=== PATIENT | female | born 1940 | race Caucasian/White ===

== ENCOUNTER 2016-05-27 08:29 | Inpatient (IN) | payer OTHER ==
[2016-05-12 09:38] VITALS: BMI 39.0
--- NOTE | 2016-05-12 10:19 | PAT Medication Instructions ---
Service Date May 12, 2016. Current Home Medication List Albuterol (Ventolin Hfa), 2 PUFFS INH Q4 PRN for SOB/Wheezing Allopurinol (Zyloprim), 100 MG PO DAILY Alprazolam (Xanax *), 0.25 MG PO BID PRN Amlodipine (Norvasc), 5 MG PO DAILY Calcium Carbonate-Vitamin D (Calcium), 1 TAB PO TID Celecoxib (Celebrex), 200 MG PO BID Fish Oil ([place]-3), 1 CAP PO QID Fluoxetine (Prozac), 20 MG PO DAILY Furosemide (Lasix), 20 MG PO DAILY Gabapentin (Neurontin), 800 MG PO BID Hydrocodone/Acetaminophen 5MG/325MG ([place] 5MG/325MG), 1 TABLET PO Q4 PRN for Pain Lisinopril (Zestril), 40 MG PO DAILY Metoprolol Tartrate (Lopressor) (Lopressor), 50 MG PO BID Multivitamin (Multivitamin), 1 TAB PO DAILY Omeprazole (Prilosec), 20 MG PO DAILY Potassium Ext Rel (Klor-Con), 10 MEQ PO DAILY Rosuvastatin Calcium (Crestor), 10 MG PO HS [Chlorhexidine Rinse], 1 DOSE PO UD PRN for WITH DENTAL PROCEDURES Medication Instructions For Your Scheduled Surgery - Hold the following medications 2 weeks prior to surgery: Fish Oil ([place]-3), 1 CAP PO QID - Hold the following medications the morning of surgery: Multivitamin (Multivitamin), 1 TAB PO DAILY Potassium Ext Rel (Klor-Con), 10 MEQ PO DAILY Lisinopril (Zestril), 40 MG PO DAILY Furosemide (Lasix), 20 MG PO DAILY Celecoxib (Celebrex), 200 MG PO BID (otherwise okay to continue per surgeon) Calcium Carbonate-Vitamin D (Calcium), 1 TAB PO TID - Take the following medications the morning of surgery with a sip of water: Gabapentin (Neurontin), 800 MG PO BID Metoprolol Tartrate (Lopressor) (Lopressor), 50 MG PO BID Hydrocodone/Acetaminophen 5MG/325MG ([place] 5MG/325MG), 1 TABLET PO Q4 PRN for Pain (may take if needed up to 4 hours prior to surgery) Omeprazole (Prilosec), 20 MG PO DAILY Fluoxetine (Prozac), 20 MG PO DAILY Amlodipine (Norvasc), 5 MG PO DAILY Albuterol (Ventolin Hfa), 2 PUFFS INH Q4 PRN for SOB/Wheezing (use if needed; BRING TO HOSPITAL) Alprazolam (Xanax *), 0.25 MG PO BID PRN Allopurinol (Zyloprim), 100 MG PO DAILY - Take the following medications as scheduled the night before surgery: Rosuvastatin Calcium (Crestor), 10 MG PO HS Gabapentin (Neurontin), 800 MG PO BID Metoprolol Tartrate (Lopressor) (Lopressor), 50 MG PO BID Hydrocodone/Acetaminophen 5MG/325MG ([place] 5MG/325MG), 1 TABLET PO Q4 PRN for Pain Celecoxib (Celebrex), 200 MG PO BID Calcium Carbonate-Vitamin D (Calcium), 1 TAB PO TID Albuterol (Ventolin Hfa), 2 PUFFS INH Q4 PRN for SOB/Wheezing Alprazolam (Xanax *), 0.25 MG PO BID PRN If you have any questions please call us at [phone] or [phone] or [phone]
--- NOTE | 2016-05-12 11:02 | DIAGNOSTIC IMAGING REPORT ---
CHEST PREADMISSION(PA/LAT) HISTORY: Preop. COMPARISON: Chest 10/31/2008. FINDINGS: Cardiac silhouette is mildly enlarged. There is mild diffuse interstitial thickening. No focal lung consolidations to suggest pneumonia. No pleural effusions. No pneumothorax. IMPRESSION: 1. Mild cardiomegaly. 2. Mild interstitial thickening. This could chronic or due to mild congestive change. Electronically signed by: Nolan Rao M.D. 05/12/2016 11:01 AM Dictated Date/Time: 05/12/2016 10:59 AM
[2016-05-12 11:07] LABS: BASO % 0.2 %; BASO ABS # 0.02 K/uL (0-0.2); COMPLETE YES; EOS % 1.4 %; HEMATOCRIT 43.5 % (37-47); IG% 0.3 %; LYMPH % 18.7 %; LYMPH ABS # 1.88 K/uL (1.2-3.4); MEAN CELL VOLUME 92.6 fL (80-100); MEAN CORPUSCULAR HGB CONC 32.4 g/dl (32-36); MEAN PLATELET VOLUME 11.6 fL (7.4-10.4); MONO % 10.4 %; PLATELET COUNT 190 K/uL (130-400); URINE APPEARANCE CLEAR (CLEAR); URINE BILIRUBIN NEG (NEG); URINE COLOR DK YELLOW; URINE NITRITE NEG (NEG); URINE SPECIFIC GRAVITY 1.028 (1.000-1.030); UROBILINOGEN NEG (NEG); WHITE BLOOD COUNT 10.05 K/uL (4.8-10.8)
[2016-05-12 11:09] LABS: MANUAL MICROSCOPIC REQUIRED? YES; REVIEW REQ? NO
[2016-05-12 11:16] LABS: URINE BACTERIA 1+ (NEG); URINE RBC 0-4 /hpf (0-4)
[2016-05-12 11:50] LABS: BUN/CREATININE RATIO 40.5 (10-20); CALCIUM 9.3 mg/dl (8.5-10.1); CREATININE 1.1 mg/dl (0.60-1.20); POTASSIUM 4.8 mmol/L (3.5-5.1)
--- NOTE | 2016-05-26 10:12 | HISTORY & PHYSICAL EXAMINATION ---
DATE OF ADMISSION: 05/27/2016 HISTORY OF PRESENT ILLNESS: The patient presents to our office with a complaint of left leg pain. It is limiting in nature. She has failed nonoperative treatment for this. Denies bowel or bladder changes. PAST MEDICAL HISTORY: The patient's medical history is significant for hypertension, hypercholesterolemia, anxiety, hypothyroidism, arthritis, jaundice, GERD, obesity. PAST SURGICAL HISTORY: Significant for hip replacement on the right, colostomy, arthrocentesis of the right shoulder, hysterectomy, left hand surgery, and appendectomy. ALLERGIES: INCLUDE LATEX, OFLOXACIN, NORTRIPTYLINE, CYMBALTA, CONTROL PILLS AND KIWI FRUIT. MEDICATIONS: To include: 1. Amlodipine besylate 5 mg a day. 2. Celebrex 200 mg twice a day. 3. Chlorhexidine rinse. 4. Crestor 10 mg a day. 5. Fluoxetine 20 mg a day. 6. Gabapentin 800 mg twice a day. 7. Lisinopril 40 mg a day. 8. Metoprolol 50 mg twice a day. 9. Prilosec 20 mg daily. 10. Ventolin as needed. 11. Xanax 0.25 mg 2 a day p.r.n. 12. Furosemide 20 mg a day. 13. Potassium 10 mEq daily. 14. Multivitamin. 15. Fish oil. 16. Calcium. 17. Glucosamine. SOCIAL HISTORY: [place] alcohol and tobacco use. REVIEW OF SYSTEMS: Significant for back and bilateral leg pain. PHYSICAL EXAMINATION: HEENT: Speech appropriate. CARDIOPULMONARY: No gross abnormalities. ABDOMEN: Soft, nontender. GENITOURINARY: Deferred. NEUROLOGIC: Cranial nerves II-XII grossly intact. MUSCULOSKELETAL: Shows a well-healed lumbar incision. Strength is intact bilateral lower extremities. Neurovascularly intact. ASSESSMENT: Anterolisthesis L2-3 and L3-4, neural foraminal stenosis. PLAN: At this point in time, she has tried and failed conservative therapy and may consider surgical intervention. Surgery would require revision decompression L2-3, L3-4. Risks, benefits, pros, cons, and alternatives were outlined in detail. The patient would like to proceed with the above-mentioned surgical plan.
[2016-05-27] VITALS (9 sets, daily range): BP systolic 117–155; BP diastolic 61–80; PULSE 50–65; TEMP 36.4–36.7; O2SAT 95–99; Ht 172.7 cm; Wt 116.3 kg
[~2016-05-27] VITALS: Ht 172.7 cm; Wt 116.3 kg
--- NOTE | 2016-05-27 07:25 | History & Physical Bridge Note ---
H&P Re-Evaluation Bridge Note: I have examined the patient, reviewed the History & Physical and in the interval since the performance of the History & Physical I have noted the following changes of clinical significance: No changes noted
[~2016-05-27 08:29] MED LIST: ALLO100T PO; AMLO-110 PO; CALC-51 PO; CEFAZOLIN 2000 MG/60 ML D5W IV SCH; CHLORHEXIDINE PO; CLB100 PO; CRS/10 PO; FLUO20CA35 PO; FURO-85 PO; GABA800T PO; HYDR-5688 PO; LACTATED RINGER'S 1000ML 1,000 ML IV SCH; LISI-725 PO; METO50TA16 PO; MULT-506 PO; OMEG10007 PO; POTA20TA16 PO; PRLSR20 PO; PRVHFAIN INH; XNX25 PO
[2016-05-27] MEDS ORDERED: FENTANYL CITRATE INJ 50 MCG/1 ML 2 ML VIAL ONE ×2 (09:20→10:21)
[2016-05-27] MEDS ORDERED: MIDAZOLAM HCL 1 MG/ML 2ML VIAL ONE (09:20)
[2016-05-27] MEDS ORDERED: BUPIVACAINE/EPINEPHRINE 0.5% MPF 1:200,000 30 ML VIAL ONE ×2 (09:33→09:49)
[2016-05-27] MEDS ORDERED: SODIUM CHLORIDE 0.9% PF 50 ML VIAL ONE (09:33)
[2016-05-27] MEDS ORDERED: BACITRACIN 50000 UNIT VIAL ONE (09:33)
[2016-05-27] MEDS ORDERED: ATROPINE SULFATE 0.1 MG/ML 5ML SYR IV PRN (09:45)
[2016-05-27] MEDS ORDERED: HYDROmorphone INJ 2 MG/ML SYR/VIAL IV PRN (09:45)
[2016-05-27] MEDS ORDERED: ONDANSETRON INJ 2 MG/ML 2 ML VIAL IV PRN ×2 (09:45→11:30)
[2016-05-27] MEDS ORDERED: PHENYLEPHRINE 100MCG/ML 5ML SYR IV PRN (09:45)
[2016-05-27] MEDS ORDERED: EpHEDrine SULFATE INJ 50 MG/ML AMP IV PRN (09:45)
[2016-05-27] MEDS ORDERED: HYDROmorphone INJ 2 MG/ML SYR/VIAL ONE ×2 (10:21→11:43)
--- NOTE | 2016-05-27 11:01 | Progress Note ---
Progress Note Date of Service May 27, 2016. Progress Note The patient was a difficult intubation and after a few attempts with a MAC 3 blade we used the glidescope. A white object was noted in the oropharynx which appeared to be a dental crown. The patient was intubated and the crown was removed uneventfully with a pair of forceps. Upon examination of the teeth it appeared that the crown fell off of the right upper molar. There was never any pressure placed on her molars during the intubation process.
[2016-05-27] MEDS ORDERED: FLOSEAL HEMOSTATIC MATRIX 10ML TOP ONE (11:23)
[2016-05-27] MEDS ORDERED: SODIUM CHLORIDE 0.9% 1000ML 1,000 ML IV SCH (11:27)
--- NOTE | 2016-05-27 11:27 | [facility] Post Operative Brief Note ---
Immediate Operative Summary Operative Date May 27, 2016. Pre-Operative Diagnosis Anterolisthesis L2-L3, Neural Foraminal Stenosis L3-L4 Post-Operative Diagnosis Same as preoperative Procedure(s) Performed L3-L4 Revision, L2-L3 Lumbar Decompression, Pedicle Screw Fixation Fusion, Placement of an Interbody Device L3-L4 , Bone Graft Application Allograft Jordyn, Bone Morphogenetic Protein Application. Surgeon Marketing Operations Assistant Surgeon(s) Marlen Angeles PA-C Estimated Blood Loss 325 mL Findings stenosis Specimens None per surgeon.
[2016-05-27] MEDS ORDERED: FAMOTIDINE 20 MG TAB PO PRN (11:30)
[2016-05-27] MEDS ORDERED: LORAZEPAM 0.5 MG TAB PO PRN (11:30)
[2016-05-27] MEDS ORDERED: ALBUTEROL HFA 8 GM INHALER INH PRN (11:30)
[2016-05-27] MEDS ORDERED: ACETAMINOPHEN IV 100 ML IV PRN (11:30)
[2016-05-27] MEDS ORDERED: NALOXONE HCL 0.4 MG/1 ML VIAL/CARP IV PRN ×2 (11:30)
[2016-05-27] MEDS ORDERED: ACETAMINOPHEN 500 MG TAB PO PRN (11:30)
[2016-05-27] MEDS ORDERED: DO NOT ADMINISTER FLU VACCINE PRN ×3 (11:30)
[2016-05-27] MEDS ORDERED: MAGNESIUM HYDROXIDE SUSP 30 ML UDC PO PRN (11:30)
[2016-05-27] MEDS ORDERED: BISACODYL 10 MG SUPP PR PRN (11:30)
[2016-05-27] MEDS ORDERED: PROMETHAZINE HCL INJ 12.5 MG in SODIUM CHLORIDE 0.9% 50ML 50 ML IV PRN (11:30)
[2016-05-27] MEDS ORDERED: SOD PHOSPHATE/SOD BIPHOSPHATE ENEMA 132 ML BTL PR PRN (11:30)
[2016-05-27] MEDS ORDERED: ALUMINUM/MAGNESIUM SUSP 30 ML UDC PO PRN (11:30)
[2016-05-27] MEDS ORDERED: DO NOT ADMINISTER PNEUMOCOCCAL VACCINE PRN ×2 (11:30)
[2016-05-27] MEDS ORDERED: METOCLOPRAMIDE HCL INJ 5 MG/ML 2 ML VIAL IV PRN (11:30)
[2016-05-27] MEDS ORDERED: hydrOXYzine HCL 25 MG TAB PO PRN (11:30)
[2016-05-27] MEDS ORDERED: LORAZEPAM INJ 0.5 MG in SYRINGE 0 ML IV PRN (11:30)
[2016-05-27] MEDS ORDERED: ONDANSETRON INJ 2 MG/ML 2 ML VIAL ONE ×2 (11:33→11:44)
[2016-05-27] MEDS ORDERED: LIDOCAINE HCL 2% 2 ML VIAL (20MG/ML) ONE (11:33)
[2016-05-27] MEDS ORDERED: DEXAMETHASONE SOD INJ 4 MG/ML VIAL ONE (11:33)
[2016-05-27] MEDS ORDERED: ROCURONIUM BROMIDE 10 MG/ML 5 ML VIAL ONE (11:33)
[2016-05-27] MEDS ORDERED: PROPOFOL IV EMULSION 10 MG/ML 20 ML VIAL IV ONE (11:33)
[2016-05-27] MEDS ORDERED: NEOSTIGMINE METHYLSULFATE 1 MG/ML 10ML VIAL ONE (11:44)
[2016-05-27] MEDS ORDERED: KETOROLAC TROMETHAMINE 30 MG/ML VIAL ONE (11:44)
[2016-05-27] MEDS ORDERED: GLYCOPYRROLATE INJ 0.2 MG/ML VIAL ONE (11:44)
[2016-05-27] MEDS ORDERED: EpHEDrine SULFATE 50MG/5ML SYR ONE (11:44)
[2016-05-27] MEDS ORDERED: LABETALOL HCL IV 5 MG/ML 20ML IV ONE (11:45)
--- NOTE | 2016-05-27 11:47 | DIAGNOSTIC IMAGING REPORT ---
INTRAOPERATIVE RADIOGRAPHS CLINICAL HISTORY: L2-L4 spinal fusion. Fluoroscopy time: 20 seconds. FINDINGS: 2 spot fluoroscopic views of the lumbar spine are presented. There is evidence of discectomy at L3-L4 with laminectomy and posterior fusion from L2 -L4. Interpedicular screws are present at all levels. The orthopedic hardware appears intact. IMPRESSION: Intraoperative images from L2 -L4 spinal fusion as above. Electronically signed by: Philip Santos M.D. 05/27/2016 11:45 AM Dictated Date/Time: 05/27/2016 11:44 AM
[2016-05-27] MEDS ORDERED: HYDROmorphone HCL 0.5MG/ML 50 ML CASSETTE ONE (12:15)
--- NOTE | 2016-05-27 12:43 | OPERATIVE REPORT ---
DATE OF OPERATION: 05/27/2016 PREOPERATIVE DIAGNOSES: Spinal stenosis and spondylolisthesis. POSTOPERATIVE DIAGNOSES: Same. PROCEDURES PERFORMED: 1. Revision decompression, medial facetectomies and foraminotomy, L2-L3 and L3-L4. 2. Posterior spinal fusion, L2-L3 and L3-L4. 3. Placement posterior segmental instrumentation using Orthros rods and screws, L2-L3 and L3-L4. 4. Interbody fusion, L3-L4. 5. Placement of PEEK cage 10 x 26 mm at L3-L4. 6. Placement of locally harvested morcellized autograft in the posterior gutters. 7. Placement of Infuse collagen sponge combined with Mastergraft in the posterior gutters and Jordyn bone graft in the interbody space. SURGEON: Dr. Nader Nation. [employer]: EBER King. Due to the complex nature of the procedure, the entire surgery was performed with the speech pathology assistant of EBER King. The assistant gm of content & delivery, under direct supervision, was involved in the actual performance of all aspects of the surgical procedure including hemostasis, tissue retraction and incision, instrument management, patient positioning, and wound closure. ANESTHESIA: General. DISPOSITION: The patient awakened and taken to PACU in stable condition. HISTORY OF PATIENT'S PROBLEMS: This is a 75-year-old female that presents with above-mentioned diagnoses. After failing an extensive course of nonoperative care, she elected to undergo the above-mentioned procedures. Risks, benefits, pros, cons, and alternatives were outlined in detail preoperatively. OPERATION AND FINDINGS: The patient was met preoperatively, case discussed and all questions were addressed. At that point, the patient was taken back to operative suite and after undergoing successful general intubation by the department of anesthesia, she was placed in prone position on Mir table atop Crow frame. All bony prominences were well padded and the eyes were inspected to ensure there was no external pressure placed upon them. At this point, lumbar spine was prepped and draped in normal sterile fashion. Utilizing the previous incision site, sharp dissection with the assistance of Bovie cautery was performed down to and exposing the remaining lamina and transverse processes of L2, L3, and L4 bilaterally. I then performed a revision and foraminotomy L2-L3 and L3-L4 on the left, and particularly L3 on the left, noting severe neural compression and disk protrusion within the foramina. After decompression, pedicle screws were then placed in L2, L3, and L4 bilaterally with assistance of fluoroscopy. Appropriate size humberto provisionally placed. Through a transforaminal approach on the left, a complete diskectomy of L3-L4 was performed. Endplates were curetted to subcortical bleeding bone and a 10 x 26 mm PEEK cage filled with Jordyn bone grafting tapped into position. The rods were then locked into final position bilaterally and transverse processes of L2, L3, and L4 burred to subcortical bleeding bone. Infuse collagen sponge combined with Mastergraft and locally harvested morcellized autograft was placed in the posterior lateral gutters. A 7 flat STEVE drain inserted. Incision was closed with 1-0 Vicryl in the fascia, 2-0 Vicryl subcutaneously, and 4-0 Monocryl for final skin closure. Steri-Strips and sterile dressing placed. The patient was awakened and taken to PACU in stable condition. I attest to the content of the Intraoperative Record and any orders documented therein. Any exceptio ns are noted below.
--- NOTE | 2016-05-27 13:53 | Anesthesiology Progress Note ---
Anesthesia Post Op Note Date & Time May 27, 2016 at 13:47 Vital Signs Pain Intensity: 4.0 Vital Signs Past 12 Hours Date Time Temp Pulse Resp B/P Pulse Ox O2 Delivery O2 Flow Rate FiO2 05/27/16 13:45 97 Nasal Cannula 4.0 05/27/16 13:39 36.6 54 16 125/74 95 Nasal Cannula 05/27/16 13:10 36.4 50 16 130/70 97 Nasal Cannula 4.0 05/27/16 13:10 97 Nasal Cannula 4.0 05/27/16 13:00 53 18 149/67 96 Nasal Cannula 4 05/27/16 12:45 52 16 129/86 97 Nasal Cannula 4 05/27/16 12:30 36.0 53 19 139/62 96 Nasal Cannula 4 05/27/16 12:20 56 13 151/64 94 Nasal Cannula 4 05/27/16 12:10 59 12 164/67 95 Mask 10 05/27/16 12:00 67 18 144/66 94 Mask 10 05/27/16 11:50 36.2 76 16 181/74 95 Mask 10 05/27/16 09:13 36.4 50 16 151/63 96 Room Air Notes Anesthetic Complications: Upon intubation with the glidescope, it was noticed that there was a dental crown in the patients oropharynx. The patient was successfully intubated and the crown retrieved uneventfully with with a ringed forceps. It appears to have come from her right upper molar. I explained this to the patient in the PACU and when I asked her if she had a loose cap she said yes. The crown was placed in a container and labeled and sent with her belongings to her room.
[2016-05-27] MEDS ORDERED: HYDROmorphone INJ 1 MG/ML SYR IV PRN (14:00)
[2016-05-27] MEDS: SODIUM CHLORIDE 0.9% 1000ML 1,000 ML IV SCH ×2 (14:10→20:48)
[2016-05-27] MEDS ORDERED: RXC5 PO (14:24)
--- NOTE | 2016-05-27 14:25 | Discharge Instructions ---
Discharge Instructions Date of Service May 27, 2016. Admission Reason for Admission: Lumbar Spinal Stenosis Discharge Discharge Diagnosis / Problem: stenosis Discharge Goals Goal(s): Improve function Activity Recommendations Activity Limitations: per Instructions/Follow-up section . Instructions / Follow-Up Instructions / Follow-Up ACTIVITY RECOMMENDATIONS: SELF CARE INSTRUCTIONS AFTER THORACIC/LUMBAR FUSIONS 1. You may walk to your tolerance. It is good exercise for your legs and back. Expect some back and intermittent leg aches and pains. 2. You may perform "counter-top" level activities (make a sandwich, anil with a project, etc.). 3. No bending or lifting of more than 10 pounds or back twisting of any nature (roll like a log when turning in bed). 4. You may ride in a car for 20-30 minutes at a time. No driving until after your first visit with your doctor. 5. Frequent changes of position and restricting sitting to 30 minutes at a time will help limit the amount of back spasms and stiffness you may experience. 6. You may discontinue the use of ambulatory aids (cane, crutches, etc.) once your strength and confidence allow. 7. You may stand up comedian the shower and let water strike your incision when you arrive home at least once daily. Do not take a tub bath, sit in a hot tub or go into a swimming pool until after your first recheck in the office. SPECIAL CARE INSTRUCTIONS: VERY IMPORTANT TO READ AND REVIEW A. Your surgical incision has been closed with a cosmetic suture under the skin that will dissolve in about 6 weeks. In 14 days, you can use a pair of clean scissors and cut the suture that is left outside of the skin at the ends of your incision. 1. The small skin tapes can be removed 7 days after surgery if they have not fallen off by that point. 2. You may keep the wound open to air as much as possible to promote healing after post-op day number 5 unless told otherwise by your doctor. 3. If you think the wound looks like it is becoming infected (redness or worsening drainage) and/or you are experiencing fever, chill or worsening back pain and muscle spasms, contact the office so that we may evaluate you as soon as possible. B. Complications are uncommon, but please contact us if you have any signs or symptoms of: 1. wound infection (fever higher than 102.5 degrees F, redness, separation of wound, drainage, or increasing pain from the incision) 2. blood clots in legs (pain, swelling, redness and warmth in legs) 3. urinary tract infection (fever higher than 102.5 degrees F, burning upon urination or increased frequency of urination) 4. nerve problems (inability to walk on your toes or heels, numbness, loss of bowel or bladder control) 5. any other symptoms that concern you C. Please call the office at if you have any concerns or questions about your operation or recovery. D. No smoking! Smoking drastically decreases the chance of a solid fusion. E. Do not take any anti-inflammatory medications (Indocin, Advil, Motrin, Aspirin, Naprosyn, etc.) as these may inhibit the chance of a solid fusion. Tylenol is okay to take for pain. MANAGING PAIN AFTER SPINAL SURGERY 1. Narcotic medication is intended for short-term use and will be provided for surgical pain. Surgical pain usually lasts for a period of 4-6 weeks. Narcotic medication includes Percocet, Vicodin, Darvocet, Tylenol #3 or Lortab. 2. Longer-term pain is more appropriately treated with non-narcotic medication such as Tylenol ES. 3. Muscle spasm is not appropriately treated with narcotics. Muscle relaxers such as Soma, Flexeril or Skelaxin can be used along with Tylenol ES. 4. Remember that we all live with some "aches and pains". This is not unusual or uncommon after an injury or as we get older. a. Back pain is expected and may include muscle spasms for 4 to 6 weeks after surgery. The pain should gradually improve. If the pain worsens for no apparent reason, please contact the office. b. Intermittent leg pain may also be experienced and should not be concerned about unless it worsens for no apparent reason. If so, please contact the office. 5. We will provide appropriate medication within the normal guidelines of their prescribed use. We will also be very cautious and aware of potential abuse and extended duration of patients' medication needs. a. Pain medications are for your comfort and to assist with sleep and rest so that the tissue can heal. They are not provided in order to return to normal activity and should not be used through the day. To do so or worsening pain at night can result from ongoing tissue damage and development of tolerance to the prescribed medicine. 6. Please allow 2-3 days to process refills. Prescriptions will not be mailed but must be picked up at the office. FOLLOW UP VISIT: Keep your scheduled follow-up appointment. Any questions, please call the office at . Current Hospital Diet Patient's current hospital diet: Regular Diet Discharge Diet Recommended Diet: Regular Diet Procedures Procedures Performed: L3-L4 Revision, L2-L3 Lumbar Decompression, Pedicle Screw Fixation Fusion, Placement of an Interbody Device L3-L4 , Bone Graft Application Allograft Jrodyn, Bone Morphogenetic Protein Application. Pending Studies Studies pending at discharge: no Medical Emergencies . Who to Call and When: Medical Emergencies: If at any time you feel your situation is an emergency, please call 911 immediately. . Non-Emergent Contact Non-Emergency issues call your: Primary Care Provider . "Provider Documentation" section prepared by Nader Nation. . VTE Core Measure Inpt VTE Proph given/why not?: Hernan Puente, SCD's
[2016-05-27] MEDS: HYDROmorphone HCL 0.5MG/ML 50 ML CASSETTE IV PRN ×2 (15:14→22:59)
[2016-05-27] MEDS: DEXAMETHASONE INJ 6 MG in SYRINGE 0 ML IV SCH (16:47)
[2016-05-27] MEDS: CEFAZOLIN IV 2,000 MG in DEXTROSE 5% 50ML 50 ML IV SCH (18:29)
--- NOTE | 2016-05-27 18:56 | Medical Consult ---
Consultation Date of Consultation: May 27, 2016. Attending Physician: Nader Nation D.O. Reason for Consultation: Post Op Medical Management History of Present Illness 75 year old female who is s/p L2-3 decompression fusion, L3-[address] Nation. Patient has been having increasing radicular left leg pain. She failed outpatient conservative measures and therefore presented for the planned procedure today. Post operatively the patient is doing well. She reports her pain is well controlled. She denies chest pain and shortness of breath. No abdominal pain, nausea, or vomiting. She reports chronic numbness in both of her feet from neuropathy which is unchanged. She currently has a weeks in place. Past Medical/Surgical History Medical Problems: (1) Anxiety Status: Chronic (2) Arthritis Status: Chronic (3) Esophageal dilatation Status: Chronic (4) HLD (hyperlipidemia) Status: Chronic (5) HTN (hypertension) Status: Chronic (6) Neuropathy Status: Chronic Surgical Problems: (1) H/O hand surgery Status: Chronic (2) H/O shoulder surgery Status: Chronic (3) History of appendectomy Status: Chronic (4) History of back surgery Status: Chronic (5) History of cholecystectomy Status: Chronic (6) History of hysterectomy Status: Chronic (7) History of right hip replacement Status: Chronic Family History non contributory due to patient's age Social History Smoking Status: Never Smoker Alcohol Use: none Marital Status: Housing Status: lives with family Allergies Coded Allergies: Adhesives (Verified Allergy, Intermediate, RASH, 05/27/16) Latex1 -Allergic Contact Dermititis (Verified Allergy, Intermediate, RASH BLISTERS, 05/27/16) CI Pigment Blue 63 (Verified Allergy, Unknown, HALLUCINATIONS, 05/27/16) Duloxetine (Verified Allergy, Unknown, HALLUCINATIONS, 05/27/16) Kiwi (Verified Allergy, Unknown, FUZZ/SKIN CAUSED LIPS TO SWELL ITCHING, ) Nortriptyline (Verified Allergy, Unknown, HALLUCINATIONS, 05/27/16) Quinolones (Verified Allergy, Unknown, UNKNOWN, 05/27/16) Uncoded Allergies: CONTROL PILLS (Allergy, Unknown, HIVES IN GENITAL AREA, 05/12/16) Home Medications Calcium (Calcium Carbonate-Vitamin D) 1 Tab Tab 1 Tab PO TID Klor-Con (Potassium Chloride) 20 Meq Tabcr 10 Meq PO DAILY Lasix (Furosemide) 20 Mg Tab 20 Mg PO DAILY [place] 5MG/325MG (Acetaminophen/Hydrocodone Bitart) Tab 1 Tablet PO Q4 PRN PRN PAIN Ventolin Hfa (Albuterol) 60 Puffs/5400 Mcg Aers 2 Puffs INH Q4 PRN Prilosec (Omeprazole) 20 Mg Capcr 20 Mg PO DAILY Lopressor (Metoprolol Tartrate) 50 Mg Tab 50 Mg PO BID Neurontin (Gabapentin) 800 Mg Tab 800 Mg PO BID Prozac (Fluoxetine HCl) 20 Mg Cap 20 Mg PO DAILY Crestor (Rosuvastatin Calcium) 10 Mg Tab 10 Mg PO HS [Chlorhexidine Rinse] 1 Dose PO UD PRN Celebrex (Celecoxib) 100 Mg Cap 200 Mg PO BID 30 Days Norvasc (Amlodipine Besylate) 5 Mg Tab 5 Mg PO DAILY [place]-3 (Fish Oil) 1 Ea Cap 1 Cap PO QID Xanax * (Alprazolam) 0.25 Mg Tab 0.25 Mg PO BID PRN Zestril (Lisinopril) 20 Mg Tab 40 Mg PO DAILY Current Inpatient Medications Current Inpatient Medications Medications (Trade) Dose Ordered Sig/Barb Route Start Time Stop Time Status Last Admin Dose Admin Cefazolin Sodium 60 ml @ 100 mls/hr PREOP IV 05/27/16 06:00 05/27/16 18:00 05/27/16 09:48 100 MLS/HR Lactated Ringer's 1,000 ml @ 15 mls/hr Q24H IV 05/27/16 06:00 05/28/16 05:59 Dexamethasone Sodium Phosphate 6 mg/Syringe 1.5 ml @ 1 mls/min Q8H IV 05/27/16 16:00 05/28/16 08:02 05/27/16 16:47 1 MLS/MIN Promethazine HCl/ Sodium Chloride (Phenergan Inj/ Nss 50ml) 50.5 ml @ 202 mls/hr Q6H PRN IV 05/27/16 11:30 06/26/16 11:29 Ondansetron HCl (Zofran Inj) 4 mg Q6H PRN IV 05/27/16 11:30 06/26/16 11:29 Metoclopramide HCl (Reglan Inj) 10 mg Q6H PRN IV 05/27/16 11:30 06/26/16 11:29 Lorazepam 0.5 mg 0.5 mg Q8H PRN PO 05/27/16 11:30 06/26/16 11:29 Lorazepam/Syringe (Ativan Inj/ Syringe) 0.25 ml @ 1 mls/min Q8H PRN IV 05/27/16 11:30 06/26/16 11:29 Pneumococcal Polysaccharide Vaccine 1 ea PRN PRN N/A 05/27/16 11:30 06/26/16 11:29 Influenza Virus Vacc Triv Types A&B 1 ea PRN PRN N/A 05/27/16 11:30 06/26/16 11:29 Polyethylene (Miralax Powder Packet) 17 gm Q6 PO 05/29/16 06:00 06/28/16 05:59 Bisacodyl (Dulcolax Supp) 10 mg DAILY PRN [place] 05/27/16 11:30 06/26/16 11:29 Magnesium Hydroxide (Milk Of Magnesia Susp) 30 ml DAILY PRN PO 05/27/16 11:30 06/26/16 11:29 Hydromorphone HCl (Dilaudid Inj) 0.5 mg Q3H PRN IV 05/28/16 06:00 06/11/16 05:59 Oxycodone HCl 5-10mg prn moderate to sev... Q4H PRN PO 05/28/16 06:00 06/11/16 05:59 Cefazolin Sodium 2000 mg/Dextrose 60 ml @ 100 mls/hr Q8H IV 05/27/16 18:00 05/28/16 02:35 Sodium Chloride (Nss 1000ml) 1,000 ml @ 150 mls/hr Q6H40M IV 05/27/16 14:30 06/26/16 14:29 05/27/16 14:10 150 MLS/HR Acetaminophen 1000 mg 1,000 mg Q8H PRN PO 05/27/16 11:30 06/26/16 11:29 Acetaminophen (Ofirmev Iv) 100 ml @ 400 mls/hr Q8H PRN IV 05/27/16 11:30 06/26/16 11:29 Naloxone HCl (Narcan Inj) 0.1 mg Q5M PRN IV 05/27/16 11:30 06/26/16 11:29 Senna/Docusate Sodium (Senokot S Tab) 2 tab HS PO 05/27/16 21:00 06/26/16 20:59 Sodium Biphosphate/ Sodium Phosphate (Fleet Enema) 132 ml ONE PRN [place] 05/27/16 11:30 06/26/16 11:29 Hydroxyzine HCl (Vistaril Tab) 25 mg Q8H PRN PO 05/27/16 11:30 06/26/16 11:29 Al Hydroxide/Mg Hydroxide (Maalox Susp) 30 ml Q6H PRN PO 05/27/16 11:30 06/26/16 11:29 Famotidine (Pepcid Tab) 20 mg Q12 PRN PO 05/27/16 11:30 06/26/16 11:29 Diphenhydramine HCl (Benadryl Cap) 25 mg Q6H PRN PO 05/27/16 11:30 06/26/16 11:29 Miscellaneous Information (Discontinue AUTHORIZATION NURSE) 1 ea DIRECTED PRN N/A 05/28/16 06:00 05/28/16 06:01 Naloxone HCl (Narcan Inj) 0.1 mg Q5M PRN IV 05/27/16 11:30 05/28/16 06:00 Hydromorphone HCl 25 mg 25 mg PRN PRN IV 05/27/16 11:30 05/28/16 06:00 05/27/16 15:14 25 MG Sodium Chloride (Nss 1000ml) 1,000 ml @ 15 mls/hr Q24H IV 05/27/16 11:27 05/28/16 06:00 Albuterol (Ventolin Hfa Inhaler) 2 puffs Q4 PRN INH 05/27/16 11:30 06/26/16 11:29 Amlodipine Besylate (Norvasc Tab) 5 mg DAILY PO 05/28/16 09:00 06/27/16 08:59 Fluoxetine HCl (Prozac Cap) 20 mg DAILY PO 05/28/16 09:00 06/27/16 08:59 Gabapentin (Neurontin Tab) 800 mg BID PO 05/27/16 21:00 06/26/16 20:59 Lisinopril (Zestril Tab) 40 mg DAILY PO 05/28/16 09:00 06/27/16 08:59 Metoprolol Tartrate (Lopressor Tab) 50 mg BID PO 05/27/16 21:00 06/26/16 20:59 Potassium Chloride (Klor-Con M10) 10 meq DAILY PO 05/28/16 09:00 06/27/16 08:59 Rosuvastatin Calcium (Crestor Tab) 10 mg HS PO 05/27/16 21:00 06/26/16 20:59 Pantoprazole Sodium (Protonix Tab) 40 mg DAILY PO 05/28/16 09:00 06/27/16 08:59 Hydromorphone HCl (Dilaudid Inj) 1 mg Q3H PRN IV 05/28/16 06:00 06/11/16 05:59 Review of Systems 10 point review of systems was completed with the pertinent positives and negatives noted per the HPI Physical Exam Date Time Temp Pulse Resp B/P Pulse Ox O2 Delivery O2 Flow Rate FiO2 05/27/16 16:22 36.4 57 18 133/69 99 Nasal Cannula 4.0 05/27/16 15:10 36.7 57 18 125/61 97 Nasal Cannula 4.0 05/27/16 14:11 36.7 58 17 137/69 95 Nasal Cannula 05/27/16 13:45 97 Nasal Cannula 4.0 05/27/16 13:39 36.6 54 16 125/74 95 Nasal Cannula 05/27/16 13:10 36.4 50 16 130/70 97 Nasal Cannula 4.0 05/27/16 13:10 97 Nasal Cannula 4.0 05/27/16 13:00 53 18 149/67 96 Nasal Cannula 4 05/27/16 12:45 52 16 129/86 97 Nasal Cannula 4 05/27/16 12:30 36.0 53 19 139/62 96 Nasal Cannula 4 05/27/16 12:20 56 13 151/64 94 Nasal Cannula 4 05/27/16 12:10 59 12 164/67 95 Mask 10 05/27/16 12:00 67 18 144/66 94 Mask 10 05/27/16 11:50 36.2 76 16 181/74 95 Mask 10 05/27/16 09:13 36.4 50 16 151/63 96 Room Air General Appearance: no apparent distress Head: normocephalic Eyes: normal inspection ENT: hearing grossly normal Neck: supple, no JVD Respiratory/Chest: lungs clear, normal breath sounds, no respiratory distress Cardiovascular: regular rate, rhythm, no edema, normal peripheral pulses Abdomen/GI: normal bowel sounds, non tender, soft Back: + pertinent finding (s/p back surgery, STEVE in place draining small amount of bloody drainage, pedal pushes and pulls strong BL) Extremities/Musculoskelatal: normal inspection, no calf tenderness Neurologic/Psych: no motor/sensory deficits, alert, normal mood/affect, oriented x 3 Skin: normal color, warm/dry Assessment & Plan S/P L2-3 DECOMPRESSION/FUSION, L3-4 REVISION - POD#0 - activity and wound care orders as per ortho - pain control with bowel regimen - PT/OT - monitor H/H for acute blood loss anemia and transfuse blood products PRN HTN - BP controlled - on metoprolol, lisinopril, Norvasc, and furosemide - mildly bradycardia noted - holding parameters in place for metoprolol - will hold furosemide and potassium pending AM labs and patient's volume status to prevent perioperative dehydration HLD - continue statin DVT PROPHYLAXIS - deferred to ortho Thank you for this consultation. We will follow the patient with you during their hospital stay. You can reach a member of the [facility] Hospitalist Team 31/08 via pager @ . I have seen and examined the patient and have discussed the case with the provider above. I agree with the assessment and plan as stated. VSS and physical exam was unremarkable. Lower back bandage was clean, dry and intact with STEVE drain with bloody fluid as expected. Pt denies any post-op pain and is ambulatory and tolerating PO. DO Geovany
[2016-05-27] MEDS: ROSUVASTATIN CALCIUM 10 MG TAB PO SCH (20:48)
[2016-05-27] MEDS: METOPROLOL TARTRATE 50 MG TAB PO SCH (20:48)
[2016-05-27] MEDS: GABAPENTIN 800 MG TAB PO SCH (20:48)
[2016-05-27] MEDS: DOCUSATE SODIUM/SENNA 50/8.6MG TAB PO SCH (20:49)
[2016-05-28] VITALS (7 sets, daily range): BP systolic 148–182; BP diastolic 69–82; PULSE 55–74; TEMP 36.4–36.9; O2SAT 92–96
[2016-05-28] MEDS: DEXAMETHASONE INJ 6 MG in SYRINGE 0 ML IV SCH ×2 (00:15→07:59)
[2016-05-28] MEDS: CEFAZOLIN IV 2,000 MG in DEXTROSE 5% 50ML 50 ML IV SCH (01:56)
[2016-05-28] MEDS: SODIUM CHLORIDE 0.9% 1000ML 1,000 ML IV SCH (03:50)
[2016-05-28] MEDS ORDERED: HYDROmorphone INJ 1 MG/ML SYR IV PRN (06:00)
[2016-05-28] MEDS ORDERED: DC PCA PRN (06:00)
[2016-05-28] MEDS ORDERED: HYDROmorphone INJ 0.5 MG/0.5 ML SYR IV PRN (06:00)
[2016-05-28 06:37] LABS: COMPLETE YES; IG% 0.4 %; LYMPH % 7.4 %; LYMPH ABS # 0.99 K/uL (1.2-3.4); MEAN CORPUSCULAR HGB CONC 32.2 g/dl (32-36); MEAN PLATELET VOLUME 10.6 fL (7.4-10.4); MONO % 3.7 %; NEUT % 88.5 %; PLATELET COUNT 123 K/uL (130-400); RED BLOOD COUNT 3.87 M/uL (4.2-5.4); WHITE BLOOD COUNT 13.37 K/uL (4.8-10.8)
[2016-05-28 07:13] LABS: BUN/CREATININE RATIO 24.6 (10-20); CALCIUM 8.6 mg/dl (8.5-10.1); CREATININE 0.94 mg/dl (0.60-1.20); POTASSIUM 4.7 mmol/L (3.5-5.1)
[2016-05-28] MEDS: GABAPENTIN 800 MG TAB PO SCH ×2 (07:59→22:16)
[2016-05-28] MEDS: METOPROLOL TARTRATE 50 MG TAB PO SCH ×2 (07:59→22:17)
[2016-05-28] MEDS: AMLODIPINE BESYLATE 5 MG TAB PO SCH (08:00)
[2016-05-28] MEDS: PANTOprazole SOD 40 MG TAB PO SCH (08:00)
[2016-05-28] MEDS: FLUOXETINE HCL 20 MG CAP PO SCH (08:00)
[2016-05-28] MEDS: LISINOPRIL 20 MG TAB PO SCH (08:01)
--- NOTE | 2016-05-28 08:07 | Anesthesiology Progress Note ---
Anesthesia Post Op Note Date & Time May 28, 2016 at 08:05 Vital Signs Pain Intensity: 0.0 Vital Signs Past 12 Hours Date Time Temp Pulse Resp B/P Pulse Ox O2 Delivery O2 Flow Rate FiO2 05/28/16 03:30 36.4 72 18 148/76 95 Room Air 05/28/16 00:15 Room Air 05/27/16 23:30 36.4 65 18 152/76 95 Room Air 05/27/16 20:46 59 155/80 Notes Mental Status: alert / awake / arousable, participated in evaluation Pt Amnestic to Procedure: Yes Nausea / Vomiting: adequately controlled Pain: adequately controlled Airway Patency, RR, SpO2: stable & adequate BP & HR: stable & adequate Hydration State: stable & adequate Anesthetic Complications: no major complications apparent
[2016-05-28] MEDS ORDERED: NURSING VERBAL MED ORDER ONE (08:15)
[2016-05-28] MEDS: OXYCODONE HCL IR 5 MG TAB (IMMEDIATE RELEASE) PO PRN ×3 (09:00→20:22)
[2016-05-28] MEDS ORDERED: FUROSEMIDE 20 MG TAB PO SCH (09:00)
[2016-05-28] MEDS ORDERED: POTASSIUM CHLORIDE 10 MEQ TABCR PO SCH (09:00)
--- NOTE | 2016-05-28 13:21 | PROGRESS NOTE ---
DATE: 05/28/2016 DATE: 05/28/2016. SUBJECTIVE: Postop day 1. Back pain controlled. Leg pain improved. Vital signs stable. T-max 36.7. STEVE drained 130 mL. Hematocrit this a.m. is 36.0. OBJECTIVE: On exam she has good strength to testing, sitting up at the side of the bed. Pain well controlled. ASSESSMENT: Status post revision decompression and fusion. PLAN: At this time, will initiate physical therapy, advance her bowel regimen and anticipate possible [facility] in the next day or so.
--- NOTE | 2016-05-28 15:57 | Progress Note ---
Medicine Progress Note Date & Time of Visit: May 28, 2016 at 15:52. Subjective Patient seen and examined. Feeling well post-operatively. Pain controlled. Ambulating hallway. Objective Last 8 Hrs Date Time Temp Pulse Resp B/P Pulse Ox O2 Delivery O2 Flow Rate FiO2 05/28/16 15:14 36.9 63 18 161/72 92 Room Air 05/28/16 13:58 55 92 05/28/16 12:15 36.4 74 18 160/69 92 Room Air 05/28/16 08:15 36.7 68 16 150/74 96 Room Air 05/28/16 08:08 95 Room Air Physical Exam: General-awake; alert; NAD Eyes-EOMI; no scleral icterus Neck-no stridor; trachea midline Lungs-CTA bilaterally; no wheezes/crackles Heart-RRR; no m/r/g Abdomen-soft; NTND; nBS Extremities-no c/c/e; no deformity Neuro-no focal deficits Laboratory Results: Last 24 Hours Test 05/28/16 06:27 White Blood Count 13.37 K/uL Red Blood Count 3.87 M/uL Hemoglobin 11.6 g/dL Hematocrit 36.0 % Mean Corpuscular Volume 93.0 fL Mean Corpuscular Hemoglobin 30.0 pg Mean Corpuscular Hemoglobin Concent 32.2 g/dl Platelet Count 123 K/uL Mean Platelet Volume 10.6 fL Neutrophils (%) (Auto) 88.5 % Lymphocytes (%) (Auto) 7.4 % Monocytes (%) (Auto) 3.7 % Eosinophils (%) (Auto) 0.0 % Basophils (%) (Auto) 0.0 % Neutrophils # (Auto) 11.82 K/uL Lymphocytes # (Auto) 0.99 K/uL Monocytes # (Auto) 0.50 K/uL Eosinophils # (Auto) 0.00 K/uL Basophils # (Auto) 0.00 K/uL RDW Standard Deviation 50.5 fL RDW Coefficient of Variation 14.8 % Immature Granulocyte % (Auto) 0.4 % Immature Granulocyte # (Auto) 0.06 K/uL Sodium Level 145 mmol/L Potassium Level 4.7 mmol/L Chloride Level 114 mmol/L Carbon Dioxide Level 23 mmol/L Anion Gap 8.0 mmol/L Blood Urea Nitrogen 23 mg/dl Creatinine 0.94 mg/dl Est Creatinine Clear Calc Drug Dose 67.1 ml/min Estimated GFR () 67.8 Estimated GFR (Non- 58.5 BUN/Creatinine Ratio 24.6 Random Glucose 160 mg/dl Calcium Level 8.6 mg/dl Assessment & Plan S/P L2-3 DECOMPRESSION/FUSION, L3-4 REVISION - surgery 05/27 - activity and wound care orders as per ortho - pain control with bowel regimen - PT/OT - monitor H/H for acute blood loss anemia and transfuse blood products PRN HTN - continue metoprolol, lisinopril, amlodipine, and furosemide HLD - continue statin DVT PROPHYLAXIS - TEDs and SCDs Thank you for this consultation. We will follow the patient with you during their hospital stay. You can reach a member of the [facility] Hospitalist Team 31/08 via pager @ . Current Inpatient Medications: Current Inpatient Medications Medications (Trade) Dose Ordered Sig/Barb Route Start Time Stop Time Status Last Admin Dose Admin Promethazine HCl/ Sodium Chloride (Phenergan Inj/ Nss 50ml) 50.5 ml @ 202 mls/hr Q6H PRN IV 05/27/16 11:30 06/26/16 11:29 Ondansetron HCl (Zofran Inj) 4 mg Q6H PRN IV 05/27/16 11:30 06/26/16 11:29 Metoclopramide HCl (Reglan Inj) 10 mg Q6H PRN IV 05/27/16 11:30 06/26/16 11:29 Lorazepam 0.5 mg 0.5 mg Q8H PRN PO 05/27/16 11:30 06/26/16 11:29 Lorazepam/Syringe (Ativan Inj/ Syringe) 0.25 ml @ 1 mls/min Q8H PRN IV 05/27/16 11:30 06/26/16 11:29 Pneumococcal Polysaccharide Vaccine 1 ea PRN PRN N/A 05/27/16 11:30 06/26/16 11:29 Influenza Virus Vacc Triv Types A&B 1 ea PRN PRN N/A 05/27/16 11:30 06/26/16 11:29 Polyethylene (Miralax Powder Packet) 17 gm Q6 PO 05/29/16 06:00 06/28/16 05:59 Bisacodyl (Dulcolax Supp) 10 mg DAILY PRN [place] 05/27/16 11:30 06/26/16 11:29 Magnesium Hydroxide (Milk Of Magnesia Susp) 30 ml DAILY PRN PO 05/27/16 11:30 06/26/16 11:29 Hydromorphone HCl (Dilaudid Inj) 0.5 mg Q3H PRN IV 05/28/16 06:00 06/11/16 05:59 Oxycodone HCl (Roxicodone Immediate Rel Tab) 5-10mg prn moderate to sev... Q4H PRN PO 05/28/16 06:00 06/11/16 05:59 05/28/16 14:15 10 MG Acetaminophen 1000 mg 1,000 mg Q8H PRN PO 05/27/16 11:30 06/26/16 11:29 Acetaminophen (Ofirmev Iv) 100 ml @ 400 mls/hr Q8H PRN IV 05/27/16 11:30 06/26/16 11:29 Naloxone HCl (Narcan Inj) 0.1 mg Q5M PRN IV 05/27/16 11:30 06/26/16 11:29 Senna/Docusate Sodium (Senokot S Tab) 2 tab HS PO 05/27/16 21:00 06/26/16 20:59 05/27/16 20:49 2 TAB Sodium Biphosphate/ Sodium Phosphate (Fleet Enema) 132 ml ONE PRN [place] 05/27/16 11:30 06/26/16 11:29 Hydroxyzine HCl (Vistaril Tab) 25 mg Q8H PRN PO 05/27/16 11:30 06/26/16 11:29 Al Hydroxide/Mg Hydroxide (Maalox Susp) 30 ml Q6H PRN PO 05/27/16 11:30 06/26/16 11:29 Famotidine (Pepcid Tab) 20 mg Q12 PRN PO 05/27/16 11:30 06/26/16 11:29 Diphenhydramine HCl (Benadryl Cap) 25 mg Q6H PRN PO 05/27/16 11:30 06/26/16 11:29 Albuterol (Ventolin Hfa Inhaler) 2 puffs Q4 PRN INH 05/27/16 11:30 06/26/16 11:29 Amlodipine Besylate (Norvasc Tab) 5 mg DAILY PO 05/28/16 09:00 06/27/16 08:59 05/28/16 08:00 5 MG Fluoxetine HCl (Prozac Cap) 20 mg DAILY PO 05/28/16 09:00 06/27/16 08:59 05/28/16 08:00 20 MG Gabapentin (Neurontin Tab) 800 mg BID PO 05/27/16 21:00 06/26/16 20:59 05/28/16 07:59 800 MG Lisinopril (Zestril Tab) 40 mg DAILY PO 05/28/16 09:00 06/27/16 08:59 05/28/16 08:01 40 MG Metoprolol Tartrate (Lopressor Tab) 50 mg BID PO 05/27/16 21:00 06/26/16 20:59 05/28/16 07:59 50 MG Rosuvastatin Calcium (Crestor Tab) 10 mg HS PO 05/27/16 21:00 06/26/16 20:59 05/27/16 20:48 10 MG Pantoprazole Sodium (Protonix Tab) 40 mg DAILY PO 05/28/16 09:00 06/27/16 08:59 05/28/16 08:00 40 MG Hydromorphone HCl (Dilaudid Inj) 1 mg Q3H PRN IV 05/28/16 06:00 06/11/16 05:59
[2016-05-28] MEDS: DOCUSATE SODIUM/SENNA 50/8.6MG TAB PO SCH (22:16)
[2016-05-28] MEDS: ROSUVASTATIN CALCIUM 10 MG TAB PO SCH (22:16)
[2016-05-29] MEDS: OXYCODONE HCL IR 5 MG TAB (IMMEDIATE RELEASE) PO PRN ×5 (03:13→17:35)
[2016-05-29] MEDS: POLYETHYLENE (MIRALAX) 17 GM PACK PO SCH ×2 (05:44→11:11)
[2016-05-29 06:39] LABS: MEAN CELL VOLUME 92.8 fL (80-100); MEAN CORPUSCULAR HEMOGLOBIN 28.9 pg (25-34); MEAN CORPUSCULAR HGB CONC 31.1 g/dl (32-36); MEAN PLATELET VOLUME 11.1 fL (7.4-10.4); PLATELET COUNT 128 K/uL (130-400); RED BLOOD COUNT 3.77 M/uL (4.2-5.4); WHITE BLOOD COUNT 13.98 K/uL (4.8-10.8)
[2016-05-29 08:00] VITALS: BP 168/82; PULSE 53; TEMP 37.1; O2SAT 94
[2016-05-29] MEDS: AMLODIPINE BESYLATE 5 MG TAB PO SCH (08:30)
[2016-05-29] MEDS: GABAPENTIN 800 MG TAB PO SCH (08:30)
[2016-05-29] MEDS: LISINOPRIL 20 MG TAB PO SCH (08:30)
[2016-05-29] MEDS: FLUOXETINE HCL 20 MG CAP PO SCH (08:31)
[2016-05-29] MEDS: PANTOprazole SOD 40 MG TAB PO SCH (08:31)
[2016-05-29] MEDS: METOPROLOL TARTRATE 50 MG TAB PO SCH (08:31)
[2016-05-29] MEDS ORDERED: FUROSEMIDE 20 MG TAB PO SCH (09:00)
[2016-05-29] MEDS ORDERED: POTASSIUM CHLORIDE 10 MEQ TABCR PO SCH (09:00)
--- NOTE | 2016-05-29 14:53 | DISCHARGE SUMMARY ---
DATE OF DISCHARGE: 05/29/2016. PRINCIPAL DIAGNOSIS: Spinal stenosis. HOSPITAL COURSE FOLLOWS: On 05/27/2016 the patient underwent revision decompression and fusion, tolerated this well and taken to the orthopedic floor postoperatively. Postop day #1, she was up and ambulatory, progressed to postop day #2. STEVE drain decreased appropriately and subsequently discharged to [facility]. Discharge orders and instructions can be found on the chart for further review.
[2016-05-29 15:53] VITALS: BP 147/80; PULSE 55; TEMP 36.6; O2SAT 94
--- NOTE | 2016-05-29 17:00 | Progress Note ---
Medicine Progress Note Date & Time of Visit: May 29, 2016 at 16:55. Subjective Patient seen and examined. Denies back pain. Ambulating. Is without complaints. Good appetite. present at bedside. Objective Last 8 Hrs Date Time Temp Pulse Resp B/P Pulse Ox O2 Delivery O2 Flow Rate FiO2 05/29/16 15:53 36.6 55 18 147/80 94 Room Air Physical Exam: General-awake; alert; NAD Eyes-EOMI; no scleral icterus Neck-no stridor; trachea midline Lungs-CTA bilaterally; no wheezes/crackles Heart-RRR; no m/r/g Abdomen-soft; NTND; nBS Extremities-no c/c/e; no deformity Neuro-no focal deficits Laboratory Results: Last 24 Hours Test 05/29/16 06:28 White Blood Count 13.98 K/uL Red Blood Count 3.77 M/uL Hemoglobin 10.9 g/dL Hematocrit 35.0 % Mean Corpuscular Volume 92.8 fL Mean Corpuscular Hemoglobin 28.9 pg Mean Corpuscular Hemoglobin Concent 31.1 g/dl RDW Standard Deviation 51.7 fL RDW Coefficient of Variation 15.2 % Platelet Count 128 K/uL Mean Platelet Volume 11.1 fL Assessment & Plan S/P L2-3 DECOMPRESSION/FUSION, L3-4 REVISION - surgery 05/27 - activity and wound care orders as per ortho - pain control with bowel regimen - PT/OT HTN - continue metoprolol, lisinopril, amlodipine, and furosemide HLD - continue statin DVT PROPHYLAXIS - TEDs and SCDs Patient stable for discharge home with home health today. Thank you for this consultation. We will follow the patient with you during their hospital stay. You can reach a member of the [facility] Hospitalist Team 31/08 via pager @ [phone]. Current Inpatient Medications: Current Inpatient Medications Medications (Trade) Dose Ordered Sig/Barb Route Start Time Stop Time Status Last Admin Dose Admin Promethazine HCl/ Sodium Chloride (Phenergan Inj/ Nss 50ml) 50.5 ml @ 202 mls/hr Q6H PRN IV 05/27/16 11:30 06/26/16 11:29 Ondansetron HCl (Zofran Inj) 4 mg Q6H PRN IV 05/27/16 11:30 06/26/16 11:29 Metoclopramide HCl (Reglan Inj) 10 mg Q6H PRN IV 05/27/16 11:30 06/26/16 11:29 Lorazepam 0.5 mg 0.5 mg Q8H PRN PO 05/27/16 11:30 06/26/16 11:29 Lorazepam/Syringe (Ativan Inj/ Syringe) 0.25 ml @ 1 mls/min Q8H PRN IV 05/27/16 11:30 06/26/16 11:29 Pneumococcal Polysaccharide Vaccine 1 ea PRN PRN N/A 05/27/16 11:30 06/26/16 11:29 Influenza Virus Vacc Triv Types A&B 1 ea PRN PRN N/A 05/27/16 11:30 06/26/16 11:29 Polyethylene (Miralax Powder Packet) 17 gm Q6 PO 05/29/16 06:00 06/28/16 05:59 05/29/16 11:11 17 GM Bisacodyl (Dulcolax Supp) 10 mg DAILY PRN [place] 05/27/16 11:30 06/26/16 11:29 Magnesium Hydroxide (Milk Of Magnesia Susp) 30 ml DAILY PRN PO 05/27/16 11:30 06/26/16 11:29 Hydromorphone HCl (Dilaudid Inj) 0.5 mg Q3H PRN IV 05/28/16 06:00 06/11/16 05:59 Oxycodone HCl (Roxicodone Immediate Rel Tab) 5-10mg prn moderate to sev... Q4H PRN PO 05/28/16 06:00 06/11/16 05:59 05/29/16 13:51 10 MG Acetaminophen 1000 mg 1,000 mg Q8H PRN PO 05/27/16 11:30 06/26/16 11:29 Acetaminophen (Ofirmev Iv) 100 ml @ 400 mls/hr Q8H PRN IV 05/27/16 11:30 06/26/16 11:29 Naloxone HCl (Narcan Inj) 0.1 mg Q5M PRN IV 05/27/16 11:30 06/26/16 11:29 Senna/Docusate Sodium (Senokot S Tab) 2 tab HS PO 05/27/16 21:00 06/26/16 20:59 05/28/16 22:16 2 TAB Sodium Biphosphate/ Sodium Phosphate (Fleet Enema) 132 ml ONE PRN [place] 05/27/16 11:30 06/26/16 11:29 Hydroxyzine HCl (Vistaril Tab) 25 mg Q8H PRN PO 05/27/16 11:30 06/26/16 11:29 Al Hydroxide/Mg Hydroxide (Maalox Susp) 30 ml Q6H PRN PO 05/27/16 11:30 06/26/16 11:29 Famotidine (Pepcid Tab) 20 mg Q12 PRN PO 05/27/16 11:30 06/26/16 11:29 Diphenhydramine HCl (Benadryl Cap) 25 mg Q6H PRN PO 05/27/16 11:30 06/26/16 11:29 Albuterol (Ventolin Hfa Inhaler) 2 puffs Q4 PRN INH 05/27/16 11:30 06/26/16 11:29 Amlodipine Besylate (Norvasc Tab) 5 mg DAILY PO 05/28/16 09:00 06/27/16 08:59 05/29/16 08:30 5 MG Fluoxetine HCl (Prozac Cap) 20 mg DAILY PO 05/28/16 09:00 06/27/16 08:59 05/29/16 08:31 20 MG Gabapentin (Neurontin Tab) 800 mg BID PO 05/27/16 21:00 06/26/16 20:59 05/29/16 08:30 800 MG Lisinopril (Zestril Tab) 40 mg DAILY PO 05/28/16 09:00 06/27/16 08:59 05/29/16 08:30 40 MG Metoprolol Tartrate (Lopressor Tab) 50 mg BID PO 05/27/16 21:00 06/26/16 20:59 05/29/16 08:31 50 MG Rosuvastatin Calcium (Crestor Tab) 10 mg HS PO 05/27/16 21:00 06/26/16 20:59 05/28/16 22:16 10 MG Pantoprazole Sodium (Protonix Tab) 40 mg DAILY PO 05/28/16 09:00 06/27/16 08:59 05/29/16 08:31 40 MG Hydromorphone HCl (Dilaudid Inj) 1 mg Q3H PRN IV 05/28/16 06:00 06/11/16 05:59 Furosemide (Lasix Tab) 20 mg QAM PO 05/29/16 09:00 06/28/16 08:59 05/29/16 08:30 20 MG Potassium Chloride (Klor-Con M10) 10 meq DAILY PO 05/29/16 09:00 06/28/16 08:59 05/29/16 08:30 10 MEQ
[2016-05-29 17:27] VITALS: BP 147/80; PULSE 55; TEMP 36.6; O2SAT 94
[2016-05-30] MEDS ORDERED: RXC/5 PO (13:05)
[2016-05-30] MEDS ORDERED: ALPR0.25 PO (13:05)
== END 2016-05-29 18:00 | disposition home health service (06) | DRG 460 ==
LOC: ENRESERVTM → ENRESERVDT → C.ACU 08:29 → C.3E 09:00
PROVIDERS: ADMIT Orthopaedic Surgery Orthopaedic Surgery of the Spine; ATTEND Orthopaedic Surgery Orthopaedic Surgery of the Spine
PROC: 0ST20ZZ Resection of Lumbar Vertebral Disc, Open Approach (ICD-10-PCS; principal; 2016-05-27 10:45)
PROC: 0SG1071 Fusion of 2 or more Lumbar Vertebral Joints with Autologous Tissue Substitute, Posterior Approach, Posterior Column, Open Approach (ICD-10-PCS; principal; 2016-05-27 10:45)
PROC: 0SG00AJ Fusion of Lumbar Vertebral Joint with Interbody Fusion Device, Posterior Approach, Anterior Column, Open Approach (ICD-10-PCS; principal; 2016-05-27 10:45)
PROC: 3E0U0GB Introduction of Recombinant Bone Morphogenetic Protein into Joints, Open Approach (ICD-10-PCS; principal; 2016-05-27 10:45)
DX: M48.06 Spinal stenosis, lumbar region (principal); M43.16 Spondylolisthesis, lumbar region; R00.1 Bradycardia, unspecified; T85.898A Other specified complication of other internal prosthetic devices, implants and grafts, initial encounter; Y70.2 Prosthetic and other implants, materials and accessory anesthesiology devices associated with adverse incidents; Y92.234 Operating room of hospital as the place of occurrence of the external cause; I10 Essential (primary) hypertension; E78.00 Pure hypercholesterolemia, unspecified; E78.5 Hyperlipidemia, unspecified; E03.9 Hypothyroidism, unspecified; K21.9 Gastro-esophageal reflux disease without esophagitis; M19.90 Unspecified osteoarthritis, unspecified site; J45.909 Unspecified asthma, uncomplicated; M10.9 Gout, unspecified; G62.9 Polyneuropathy, unspecified; E66.9 Obesity, unspecified; Z68.39 Body mass index [BMI] 39.0-39.9, adult; Z98.1 Arthrodesis status; Z96.641 Presence of right artificial hip joint; Z79.1 Long term (current) use of non-steroidal anti-inflammatories (NSAID); Z79.891 Long term (current) use of opiate analgesic; Z79.899 Other long term (current) drug therapy

== ENCOUNTER 2016-05-30 12:29 | Emergency (ER) | payer OTHER ==
[~2016-05-30] VITALS: Ht 172.7 cm; Wt 120.7 kg
[~2016-05-30 12:29] MED LIST changes: -ALLO100T PO; -CEFAZOLIN 2000 MG/60 ML D5W IV SCH; -CLB100 PO; -LACTATED RINGER'S 1000ML 1,000 ML IV SCH; -MULT-506 PO; +RXC5 PO
[2016-05-30 12:39] VITALS: TEMP 36.9; Ht 172.7 cm; Wt 120.7 kg
[2016-05-30] MEDS ORDERED: ALPR0.25 PO (13:05)
[2016-05-30] MEDS ORDERED: RXC/5 PO (13:05)
--- NOTE | 2016-05-30 13:51 | EMERGENCY ROOM VISIT NOTE ---
History Report prepared by Kamron: Margarita Ledesma Under the Supervision of: Dr. Tanner Levin M.D. First contact with patient: 13:32 Chief Complaint: FALL Stated Complaint: FALL/ EVAL History of Present Illness The patient is a 75 year old female who presents to the Emergency Room with complaints of multiple falls starting today. She had back surgery 3 days ago and was given oxycodone for the pain. She has been taking 2 pills every 4 hours. Today she fell 2 times. She reports that her legs have felt weak and they just gave out under her. She denies any head, neck, chest, or abdomen injury. She fell with her feet under her has some knee pain. She was able to move her bowels yesterday. She is on Miralax. Source of History: patient Onset: today Position: other (global) Quality: other (falls) Timing: other (multiple) Associated Symptoms: + weakness (leg) Review of Systems All systems have been listed, reviewed, and are negative other than those previously mentioned. Please see Additional Medical History Sheet. Past Medical & Surgical Medical Problems: (1) Anxiety (2) Arthritis (3) Esophageal dilatation (4) HLD (hyperlipidemia) (5) HTN (hypertension) (6) Neuropathy Surgical Problems: (1) H/O hand surgery (2) H/O shoulder surgery (3) History of appendectomy (4) History of back surgery (5) History of cholecystectomy (6) History of hysterectomy (7) History of right hip replacement Family History Gallbladder disease Heart disease Hypertension Kidney stones Social History Smoking Status: Never Smoker Alcohol Use: none Marital Status: Housing Status: lives with significant other Occupation Status: retired Current/Historical Medications Scheduled Amlodipine (Norvasc), 5 MG PO DAILY Calcium Carbonate-Vitamin D (Calcium), 1 TAB PO TID Fish Oil ([place]-3), 1 CAP PO QID Fluoxetine (Prozac), 20 MG PO DAILY Furosemide (Lasix), 20 MG PO DAILY Gabapentin (Neurontin), 800 MG PO BID Lisinopril (Zestril), 40 MG PO DAILY Metoprolol Tartrate (Lopressor) (Lopressor), 50 MG PO BID Omeprazole (Prilosec), 20 MG PO DAILY Potassium Ext Rel (Klor-Con), 10 MEQ PO DAILY Rosuvastatin Calcium (Crestor), 10 MG PO HS Scheduled PRN Albuterol (Ventolin Hfa), 2 PUFFS INH Q4 PRN for SOB/Wheezing Alprazolam (Xanax), 0.25 MG PO UD PRN for Anxiety Oxycodone HCl (Oxycodone HCl), 5-10 MG PO Q4H PRN for Pain [Chlorhexidine Rinse], 1 DOSE PO UD PRN for WITH DENTAL PROCEDURES Allergies Coded Allergies: Adhesives (Verified Allergy, Intermediate, RASH, 05/30/16) Latex1 -Allergic Contact Dermititis (Verified Allergy, Intermediate, RASH BLISTERS, 05/30/16) CI Pigment Blue 63 (Verified Allergy, Unknown, HALLUCINATIONS, 05/30/16) Duloxetine (Verified Allergy, Unknown, HALLUCINATIONS, 05/30/16) Kiwi (Verified Allergy, Unknown, FUZZ/SKIN CAUSED LIPS TO SWELL ITCHING, ) Nortriptyline (Verified Allergy, Unknown, HALLUCINATIONS, 05/30/16) Quinolones (Verified Allergy, Unknown, UNKNOWN, 05/30/16) Uncoded Allergies: CONTROL PILLS (Allergy, Unknown, HIVES IN GENITAL AREA, 05/12/16) Physical Exam Vital Signs Date Time Temp Pulse Resp B/P Pulse Ox O2 Delivery O2 Flow Rate FiO2 05/30/16 17:30 70 16 114/82 95 Room Air 05/30/16 16:13 69 20 136/64 90 Room Air 05/30/16 14:21 66 20 104/60 92 Room Air 05/30/16 12:39 36.9 70 20 140/85 94 Room Air Physical Exam GENERAL: Patient has slightly slurred speech, appears somewhat sedated. Patient follows commands. Patient does not appear toxic. Patient is adequately hydrated and well-nourished. SKIN: No erythema, pallor, cyanosis or rash HEENT: Normocephalic, pupils equal, reactive to light and accommodation. No Gonzales's sign or raccoon's sign. Oral cavity and posterior pharynx appear normal. Neck: Supple, nontender. LUNGS: Clear to auscultation. No wheezes, no rales, no rhonchi. HEART: No murmurs. No gallops. No rubs ABDOMEN: Morbidly obese. No masses, no rebound, no hepatomegaly or splenomegaly. BACK: Healing incision over lumbar spine. EXTREMITIES: Bruise on the back of right upper arm. Older bruise on the left hand. NEUROLOGIC: Cranial nerves II-XII within normal limits. No gross motor sensory function deficits. Medical Decision & Procedures Laboratory Results 05/30/16 14:18 Red Blood Count 4.05, Mean Corpuscular Volume 94.6, Mean Corpuscular Hemoglobin 30.1, Mean Corpuscular Hemoglobin Concent 31.9, Mean Platelet Volume 11.3, Neutrophils (%) (Auto) 68.0, Lymphocytes (%) (Auto) 18.7, Monocytes (%) (Auto) 11.8, Eosinophils (%) (Auto) 0.9, Basophils (%) (Auto) 0.1, Neutrophils # (Auto ) 7.58, Lymphocytes # (Auto) 2.08, Monocytes # (Auto) 1.32, Eosinophils # (Auto ) 0.10, Basophils # (Auto) 0.01 05/30/16 14:18 Test 05/30/16 14:18 White Blood Count 11.15 K/uL (4.8-10.8) Red Blood Count 4.05 M/uL (4.2-5.4) Hemoglobin 12.2 g/dL (12.0-16.0) Hematocrit 38.3 % (37-47) Mean Corpuscular Volume 94.6 fL (80-100) Mean Corpuscular Hemoglobin 30.1 pg (25-34) Mean Corpuscular Hemoglobin Concent 31.9 g/dl (32-36) Platelet Count 137 K/uL (130-400) Mean Platelet Volume 11.3 fL (7.4-10.4) Neutrophils (%) (Auto) 68.0 % Lymphocytes (%) (Auto) 18.7 % Monocytes (%) (Auto) 11.8 % Eosinophils (%) (Auto) 0.9 % Basophils (%) (Auto) 0.1 % Neutrophils # (Auto) 7.58 K/uL (1.4-6.5) Lymphocytes # (Auto) 2.08 K/uL (1.2-3.4) Monocytes # (Auto) 1.32 K/uL (0.11-0.59) Eosinophils # (Auto) 0.10 K/uL (0-0.5) Basophils # (Auto) 0.01 K/uL (0-0.2) RDW Standard Deviation 53.3 fL (36.4-46.3) RDW Coefficient of Variation 15.5 % (11.5-14.5) Immature Granulocyte % (Auto) 0.5 % Immature Granulocyte # (Auto) 0.06 K/uL (0.00-0.02) Anion Gap 6.0 mmol/L (3-11) Est Creatinine Clear Calc Drug Dose 65.1 ml/min Estimated GFR () 63.7 Estimated GFR (Non- 55.0 BUN/Creatinine Ratio 36.3 (10-20) Calcium Level 8.8 mg/dl (8.5-10.1) Laboratory results as stated above per my review. ECG Indication: other (fall) Rate (beats per minute): 66 Rhythm: sinus rhythm Findings: PAC, no acute ischemic change ED Course 1334: Past medical records reviewed. The patient was evaluated in room C6. A complete history and physical examination was performed. 165: Upon reevaluation, the patient appeared to have improvement of her symptoms. I discussed today's findings with her. The patient was reluctant to go home because of her frequent falls, but I explained to her that she should cut back on the oxycodone and contact [facility] for assistance. She verbalized agreement of the treatment plan. She was discharged home. 1813: The patient was reluctant to go home. I explained to her that she does not meet criteria for admission to the hospital. The case manager specialist has contacted [facility], but they cannot take her today. They might be able to take her on Wednesday. We have arranged for [facility] to meet her at her home tonight to assist her. She agrees with the plan. She will be going home now. 1824: I was informed that [facility] cannot meet the patient at home tonight for billing reasons. An alternative course of action is being sought. Medical Decision Differential diagnoses: fall, multiple contusions, accidental opiate overdose. The patient is here after a couple falls at home. She recently had back surgery. She had wished to go to [facility] and apparently her insurance was denied for admission there. The patient appears intoxicated from oxycodone. She had been taking 2 pills every 4 hours. Labs were evaluated here. She does not appear to be anemic. Her blood sugar is within normal range. Electrolytes are within normal range. The patient does not have any obvious injuries from the fall. I do not believe she requires imaging studies. The patient is to follow-up with home health. I strongly encouraged her to cut the oxycodone dose in half or delete it completely. Impression Primary Impression: Opiate overdose Additional Impressions: History of back surgery Fall Scribe Attestation The scribe's documentation has been prepared under my direction and personally reviewed by me in its entirety. I confirm that the note above accurately reflects all work, treatment, procedures, and medical decision making performed by me. Departure Information Dispostion Home / Self-Care Referrals Isaiah Espinoza M.D. (PCP) Patient Instructions My [facility] Additional Instructions Take 1 oxycodone every 4-6 hours for severe pain. Decrease the oxycodone dosage as soon as possible. Take MiraLAX as needed for constipation. Call home health for assistance at home. Follow-up with orthopedics as scheduled. Problem Qualifiers
[2016-05-30 14:27] LABS: BASO % 0.1 %; BASO ABS # 0.01 K/uL (0-0.2); COMPLETE YES; EOS % 0.9 %; HEMATOCRIT 38.3 % (37-47); IG% 0.5 %; LYMPH % 18.7 %; LYMPH ABS # 2.08 K/uL (1.2-3.4); MEAN CELL VOLUME 94.6 fL (80-100); MEAN CORPUSCULAR HEMOGLOBIN 30.1 pg (25-34); MEAN CORPUSCULAR HGB CONC 31.9 g/dl (32-36); MEAN PLATELET VOLUME 11.3 fL (7.4-10.4); MONO % 11.8 %; PLATELET COUNT 137 K/uL (130-400); RED BLOOD COUNT 4.05 M/uL (4.2-5.4); WHITE BLOOD COUNT 11.15 K/uL (4.8-10.8)
[2016-05-30 14:48] LABS: BUN/CREATININE RATIO 36.3 (10-20); CALCIUM 8.8 mg/dl (8.5-10.1); CREATININE 0.99 mg/dl (0.60-1.20); POTASSIUM 4.7 mmol/L (3.5-5.1)
[2016-05-30 21:00] VITALS: BP 110/74; PULSE 72; O2SAT 95
== END 2016-05-30 21:01 | disposition home or self-care (01) ==
LOC: EDBD 12:29 → C.EDC 12:34
DX: T40.601A Poisoning by unspecified narcotics, accidental (unintentional), initial encounter (principal); Z98.890 Other specified postprocedural states; Z91.81 History of falling; Z79.899 Other long term (current) drug therapy; Z88.8 Allergy status to other drugs, medicaments and biological substances; Z91.040 Latex allergy status; Z91.09 Other allergy status, other than to drugs and biological substances; Z83.79 Family history of other diseases of the digestive system; Z82.49 Family history of ischemic heart disease and other diseases of the circulatory system; Z84.1 Family history of disorders of kidney and ureter